=== PATIENT | female | born 2000 | race Hispanic/Latino ===

== ENCOUNTER 2022-02-04 14:14 | Outpatient (CLI) | payer BC | END 2022-02-04 14:15 | disposition home or self-care (01) | LOC: SCSRAD 14:14 | PROVIDERS: ATTEND Student in an Organized Health Care Education/Training Program | DX: R76.11 Nonspecific reaction to tuberculin skin test without active tuberculosis (principal) | CPT/HCPCS: 71046 ==

== ENCOUNTER 2023-03-11 12:08 | Outpatient (CLI) | payer BC | END 2023-03-11 12:09 | disposition home or self-care (01) | LOC: SCSRAD 12:08 | PROVIDERS: ATTEND Nurse Practitioner Family | DX: R76.11 Nonspecific reaction to tuberculin skin test without active tuberculosis (principal) | CPT/HCPCS: 71046 ==